=== PATIENT | male | born 1950 | race Caucasian/White ===

== ENCOUNTER → 2016-12-06 | Outpatient (CLI) | payer MEDICARE ==
--- NOTE | ~2016-12-06 | BD1 ---
[facility] A Service of [facility] RADIOLOGY TEXT RESULTS PATIENT: GADIEL CROCKER LOCATION: [facility] : 54 UNIT #: [id number] AGE: [address]: WENDY CHIU SEX: M ORDER DR: [id number] [facility] [address] [place], [place] [address] [id number] O MR#: [id number] Acc #: [id number] NAME: GADIEL CROCKER : 1950 SEX: M STUDY DATE/TIME: 12/06/2016 12:55 UNIT: [facility] ROOM: STUDY DESCRIPTION: BD Dexa Bone Dens 1+ Site Attending Physician: Iker Lanza Referring Physician: Iker Lanza Ordering Physician: Iker Lanza Primary Care Physician: Amaya Felipe M.D. MEDICAL IMAGING REPORT This report is preliminary unless electronic signature is present EXAM DXA scan, 12/06/2016. HISTORY Smoking history for 52 years. Arthritis. FINDINGS Bone mineral density in the lumbar spine from L1 through L4 is 1.142 g/cm2 which is 0.5 standard deviations above the mean when compared to the young adult reference population which is within the range of normal. This is 1.2 standard deviations above the mean when compared to the age-matched population. Bone mineral density in the left femoral neck was 0.791 g/cm2 which is 1 standard deviation below the mean when compared to the young adult reference population which is characteristic of osteopenia. This is 0 standard deviations from mean when compared to the age-matched population. IMPRESSION Bone mineral density in the lumbar spine within the range of normal and within the left hip characteristic of osteopenia. Dictated by... Shan Dougherty M.D. THIS IS AN ELECTRONICALLY VERIFIED REPORT Shan Dougherty M.D. at 12/08/2016 8:03 AM JONATHAN/cherrie TD: 12/06/2016 17:57 JOB #: [id number] MEDICAL IMAGING REPORT [facility] A Service of [facility] RADIOLOGY TEXT RESULTS PATIENT: GADIEL CROCKER LOCATION: [facility] : 54 UNIT #: [id number] AGE: [address]: WENDY CHIU SEX: M ORDER DR: Page 1 of 1 COPY
== END | disposition home or self-care (01) ==
LOC: CWCC 12:04
DX: Z13.820 Encounter for screening for osteoporosis (principal); M85.88 Other specified disorders of bone density and structure, other site
CPT/HCPCS: 77080